=== PATIENT | female | born 1975 | race Caucasian/White ===

== ENCOUNTER 2023-01-30 09:29 | Emergency (ER) | payer SELFPAY ==
[~2023-01-30] VITALS: Ht 162.4 cm; Wt 58.9 kg
[2023-01-30 09:45] VITALS: BP 137/71
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
== END 2023-01-30 09:53 | disposition left against medical advice (07) ==
LOC: ER 09:33
DX: S00.33XA Contusion of nose, initial encounter (principal); V17.4XXA Pedal cycle driver injured in collision with fixed or stationary object in traffic accident, initial encounter; Y93.55 Activity, bike riding
CPT/HCPCS: 99281